=== PATIENT | male | born 1985 | race Caucasian/White ===

== ENCOUNTER 2024-12-02 19:42 | Emergency (ER) | payer SELFPAY ==
[2024-12-02] MEDS ORDERED: Ketorolac 30 MG/ML SDV IM ONE (20:32)
== END 2024-12-02 22:10 | disposition home or self-care (01) ==
LOC: FB.ED 19:42
DX: G44.209 Tension-type headache, unspecified, not intractable (principal); F17.200 Nicotine dependence, unspecified, uncomplicated
CPT/HCPCS: 99283

== ENCOUNTER 2025-02-05 05:19 | Emergency (ER) | payer SELFPAY | END 2025-02-05 06:20 | disposition home or self-care (01) | LOC: FB.ED 05:19 → SUPCPDRO 05:19 → FB.ED 06:20 | DX: S93.401A Sprain of unspecified ligament of right ankle, initial encounter (principal); E78.00 Pure hypercholesterolemia, unspecified; F17.210 Nicotine dependence, cigarettes, uncomplicated; Z79.899 Other long term (current) drug therapy; X50.1XXA Overexertion from prolonged static or awkward postures, initial encounter; Y93.01 Activity, walking, marching and hiking | CPT/HCPCS: 73610; 99283; A9270 ==

== ENCOUNTER 2025-04-07 09:29 | Emergency (ER) | payer SELFPAY | END 2025-04-07 10:00 | disposition left against medical advice (07) | LOC: FB.ED 09:29 | DX: Z53.21 Procedure and treatment not carried out due to patient leaving prior to being seen by health care provider (principal) ==

== ENCOUNTER 2025-04-07 10:19 | Emergency (ER) | payer SELFPAY | END 2025-04-07 10:40 | disposition left against medical advice (07) | LOC: FB.ED 10:19 | DX: Z53.21 Procedure and treatment not carried out due to patient leaving prior to being seen by health care provider (principal) | CPT/HCPCS: 99282 ==